=== PATIENT | male | born 1970 | race Asian ===

== ENCOUNTER 2020-05-25 13:35 | Emergency (ER) | payer OTHER ==
[~2020-05-25] VITALS: Ht 175.3 cm; Wt 72.7 kg
[2020-05-25] MEDS ORDERED: ALLO-44 PO (13:41)
[2020-05-25] MEDS ORDERED: AMLO2.5T96 PO (13:41)
[2020-05-25] MEDS ORDERED: ATOR10TA84 PO (13:41)
[2020-05-25] MEDS ORDERED: LOSA25TA71 PO (13:41)
[2020-05-25] MEDS ORDERED: IBUPROFEN 600 MG TABLET PO ONE (14:30)
[2020-05-25 15:00] VITALS: BP 128/77
== END 2020-05-25 15:14 | disposition home or self-care (01) ==
LOC: EMS 13:41
DX: M54.2 Cervicalgia (principal); I10 Essential (primary) hypertension; E78.00 Pure hypercholesterolemia, unspecified; Z79.899 Other long term (current) drug therapy
CPT/HCPCS: Z7502; Z7610